=== PATIENT | male | born 1995 | race Caucasian/White ===

== ENCOUNTER 2025-11-15 13:57 | Emergency (ER) | payer SELFPAY ==
[~2025-11-15] VITALS: Ht 185.4 cm; Wt 80.7 kg
[2025-11-15] MEDS: IV NS 0.9% 1,000 ML BAG IV ONE (15:00)
[2025-11-15 15:03] LABS: PLATELET COUNT (AUTO) 268 K/uL (150-450); RED BLOOD CELL COUNT(AUTO) 4.90 MIL/uL (4.5-6.0); RED CELL DISTRIBUTION WIDTH 12.9 % (11.5-15.0); WHITE BLOOD COUNT (AUTO) 8.3 K/uL (4.3-11.0)
[2025-11-15 15:11] LABS: CALCIUM, SERUM 9.0 mg/dL (8.5-10.1); CREATININE 1.1 mg/dL (0.6-1.3); SODIUM SERUM 136.0 mmol/L (136-145); UREA NITROGEN, BLOOD 20.0 mg/dL (7-18)
[2025-11-15 15:30] LABS: ASPARTATE AMINOTRANSFERASE 38.0 U/L (15-37); TOTAL PROTEIN, SERUM 8.0 g/dL (6.4-8.2)
[2025-11-15 16:24] VITALS: BP 135/78; TEMP 98.4; O2SAT 100
== END 2025-11-15 16:25 | disposition home or self-care (01) ==
LOC: ER 13:57
DX: F41.9 Anxiety disorder, unspecified (principal); E86.0 Dehydration; F19.10 Other psychoactive substance abuse, uncomplicated; R00.2 Palpitations; Z88.0 Allergy status to penicillin
CPT/HCPCS: 99284; 96360; 93005; 85025; 83690; 83735; 36415; 80053; 84484; J7030